=== PATIENT | female | born 1995 ===

== ENCOUNTER 2024-09-19 09:36 | Outpatient (CLI) | payer OTHER | END 2024-09-19 09:37 | disposition home or self-care (01) | LOC: PRENATAL 09:36 | PROVIDERS: ATTEND Obstetrics & Gynecology Maternal & Fetal Medicine | DX: O36.80X0 Pregnancy with inconclusive fetal viability, not applicable or unspecified (principal); Z36.82 Encounter for antenatal screening for nuchal translucency; Z14.8 Genetic carrier of other disease; Z3A.12 12 weeks gestation of pregnancy ==

== ENCOUNTER → 2024-11-15 08:01 | Outpatient (CLI) | payer OTHER | END | disposition home or self-care (01) | LOC: PRENATAL 08:01 | PROVIDERS: ATTEND Obstetrics & Gynecology Maternal & Fetal Medicine | DX: O44.00 Complete placenta previa NOS or without hemorrhage, unspecified trimester (principal); Z3A.20 20 weeks gestation of pregnancy ==

== ENCOUNTER 2025-02-07 08:20 | Outpatient (CLI) | payer OTHER | END 2025-02-07 08:24 | disposition home or self-care (01) | LOC: PRENATAL 08:20 | PROVIDERS: ATTEND Obstetrics & Gynecology Maternal & Fetal Medicine | DX: O26.849 Uterine size-date discrepancy, unspecified trimester (principal); O36.8199 Decreased fetal movements, unspecified trimester, other fetus; O99.019 Anemia complicating pregnancy, unspecified trimester; Z3A.31 31 weeks gestation of pregnancy ==

== ENCOUNTER 2025-03-27 07:31 | Inpatient (IN) | payer OTHER ==
[~2025-03-27] VITALS: Ht 167.6 cm; Wt 73.5 kg
[2025-03-27 08:00] VITALS: BP 112/72
[2025-03-27] MEDS ORDERED: ATABEX OB TABL1 EACH PO (08:13)
[2025-03-27] MEDS ORDERED: VALACYCLOVIR500 MG PO (08:13)
[2025-03-27] MEDS ORDERED: AMPICILLIN SODIUM 2,000 MG VIAL IV NR (08:30)
[2025-03-27] MEDS ORDERED: RINGERS SOLUTION,LACTATED 1,000 ML IV SCH (08:30)
[2025-03-27 09:08] LABS: BASO % 0.6 % (0.1-1.2); EOS # 0.24 (0.04-0.54); EOS % 1.9 % (0.7-7.0); LYMPH # 2.02 (1.18-3.74); LYMPH % 15.7 % (19.3-53.1); MEAN PLATELET VOLUME 9.70 fl (9.4-12.4); MONO # 0.86 (0.24-0.82); MONO % 6.7 % (4.7-12.5); NEUT # 9.51 (1.56-6.13); NEUT % 74.2 % (34.0-71.1); RED CELL DISTRIBUTION WIDTH 14.1 % (11.6-14.4)
[2025-03-27 09:11] LABS: URINE APPEARANCE Cloudy; URINE BILIRRUBIN Negative (NEGATIVE); URINE COLOR Yellow; URINE GLUCOSE Negative (NEGATIVE); URINE KETONE Negative (NEGATIVE); URINE LEUKOCYTE Small; URINE NITRATE Negative; URINE PROTEIN Negative (NEGATIVE); URINE UROBILINOGEN 0.2 E.U./dl
[2025-03-27 09:13] LABS: URINE BACTERIA 3152.4 uL (0.0-1933); URINE EPITHELIAL CELLS 192.1 uL (0.0-38.8); URINE RBC 42.9 uL (0.0-20.8); URINE WBC 155.9 uL (0.0-23.2)
[2025-03-27 09:31] LABS: URINE CAST 0.29 uL (0.0-1.40)
[2025-03-27 09:32] LABS: URINE BLOOD TRACES
[2025-03-27 09:39] LABS: INR 0.94
[2025-03-27 11:30] VITALS: BP 103/64
[2025-03-27] MEDS ORDERED: OXYTOCIN 20 UNITS/500ML RL PIGGYBAG IV SCH (11:45)
[2025-03-27] MEDS ORDERED: AMPICILLIN SODIUM 1,000 MG VIAL IV SCH (13:00)
[2025-03-27 14:51] VITALS: BP 104/68
[2025-03-27] MEDS ORDERED: CHLORHEXIDINE GLUCONATE 120 ML BOTTLE TOP ONE (15:00)
[2025-03-27] MEDS ORDERED: OXYTOCIN 1,000 ML IV SCH ×2 (15:00→17:00)
[2025-03-27] MEDS ORDERED: ERYTHROMYCIN BASE OPHT 1GM EACH TUBE OP ONE (15:00)
[2025-03-27 15:01] VITALS: BP 105/54
[2025-03-27 15:24] VITALS: BP 112/61
[2025-03-27] MEDS ORDERED: ACETAMINOPHEN 500 MG GEL..CAP PO NR (16:45)
[2025-03-27] MEDS ORDERED: CHLORHEXIDINE GLUCONATE 120 ML BOTTLE TOP SCH (17:00)
[2025-03-27] MEDS ORDERED: ACETAMINOPHEN 500 MG GEL..CAP PO PRN (17:00)
[2025-03-27 18:43] VITALS: BP 123/76
[2025-03-27 19:27] LABS: BASO % 0.4 % (0.1-1.2); EOS # 0.04 (0.04-0.54); EOS % 0.2 % (0.7-7.0); LYMPH # 1.22 (1.18-3.74); LYMPH % 6.9 % (19.3-53.1); MEAN PLATELET VOLUME 9.90 fl (9.4-12.4); MONO # 0.77 (0.24-0.82); MONO % 4.4 % (4.7-12.5); NEUT # 15.36 (1.56-6.13); NEUT % 87.5 % (34.0-71.1); RED CELL DISTRIBUTION WIDTH 13.8 % (11.6-14.4)
[2025-03-28] VITALS: BP 106/67
[2025-03-28] MEDS ORDERED: PNV,CALCIUM 72/IRON/FOLIC ACID 1 TAB TABLET PO SCH (09:00)
[2025-03-28 09:05] VITALS: BP 104/69; O2SAT 99
[2025-03-28 13:03] VITALS: BP 116/80; O2SAT 100
[2025-03-28 18:36] VITALS: BP 111/68
[2025-03-29 02:08] VITALS: BP 117/78
[2025-03-29 08:00] VITALS: BP 111/74
== END 2025-03-29 16:44 | disposition home or self-care (01) | DRG 807 ==
LOC: OB/GYN 07:31 → LDR 07:31 → OB/GYN 15:18
PROVIDERS: ADMIT Obstetrics & Gynecology; ATTEND Obstetrics & Gynecology
PROC: 10E0XZZ Delivery of Products of Conception, External Approach (ICD-10-PCS; principal; 2025-03-27)
PROC: 4A1HXCZ Monitoring of Products of Conception, Cardiac Rate, External Approach (ICD-10-PCS; 2025-03-27)
DX: O80 Encounter for full-term uncomplicated delivery (principal); Z37.0 Single live birth; Z3A.39 39 weeks gestation of pregnancy